=== PATIENT | female | born 1970 | race American Indian/Alaskan Native ===

== ENCOUNTER 2021-03-25 22:04 | Emergency (ER) | payer MEDICAID ==
[2021-03-25] MEDS ORDERED: Acetaminophen/HYDROcodone 325-5 MG Tab PO ONE (22:05)
--- NOTE | 2021-03-25 22:11 | EDM.PDOC ---
ED HPI GENERAL MEDICAL PROBLEM - General Stated Complaint: CHEST PAIN Time Seen by Provider: 03/25/21 22:10 Source of Information: Reports: Patient History Limitations: Reports: No Limitations - History of Present Illness INITIAL COMMENTS - FREE TEXT/NARRATIVE: 50-year-old female who reports that she awoke this a.m. with pain in her right upper chest. It was mild the time but it has seemed to get worse over time. She reports it is a sharp pain and a pressure type pain that is worse when she takes a deep breath and also when she moves her neck or chest. There has been no nausea or vomiting. No cough. No hemoptysis. There has been no known injury. She reports the pain as a 7/10. She also reports the pain seems to feel a lot like when she had a right-sided pneumothorax in the past. She reports that the only relief that she has had of the pain is when she gets in a position where she is not moving and when she is only taking shallow breaths. She has taken Advil for the pain with minimal relief. She presents to the emergency department via private vehicle with a relative. There are no other associated signs or symptoms. There are no other modifying factors. 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) - Related Data Allergies Allergy/AdvReac Type Severity Reaction Status Date / Time morphine AdvReac Nausea and Verified 03/26/21 00:12 Vomiting Home Meds: Home Meds .Amphetamine Salts Er Cap 30 mg PO DAILY 08/27/18 [History] .Amphetamine Salts Tab 30 mg PO ASDIRECTED 08/27/18 [History] Cariprazine Hydrochloride [Vraylar] 6 mg PO DAILY 08/27/18 [History] DULoxetine [Cymbalta] 120 mg PO DAILY 08/27/18 [History] Gabapentin [Neurontin] 600 mg PO TID 08/27/18 [History] Omeprazole 20 mg PO DAILY 08/27/18 [History] rOPINIRole [Requip] 2 mg PO BEDTIME 08/27/18 [History] Acetaminophen/HYDROcodone [[place] 325-5 MG] 1 tab PO Q4H PRN #20 tablet 09/03/18 [Rx] Celecoxib [CeleBREX] 200 mg PO BID #10 cap 09/03/18 [Rx] Docusate Sodium [Colace] 100 mg PO BID #20 capsule 09/03/18 [Rx] Hydrocodone/Acetaminophen [Hydrocodon-Acetaminophen 5-325] 1 - 2 each PO Q6H PRN #8 tablet 03/26/21 [Rx] Past Medical History Respiratory History: Reports: Pneumothorax (Right-sided spontaneous pneumothorax in the past.) Gastrointestinal History: Reports: GERD Musculoskeletal History: Reports: RA Psychiatric History: Reports: Bipolar, Depression Other Psychiatric History: Takes psych medications. Immunologic History: Reports: Immunosuppression (On methotrexate) - Past Surgical History Respiratory Surgical History: Reports: Other (See Below) (Right-sided chest tube placed) Female Surgical History: Reports: Section, Endometrial Ablation, Other (See Below) Other Female Surgeries/Procedures: Breast augmentation. Musculoskeletal Surgical History: Reports: Other (See Below) Other Musculoskeletal Surgeries/Procedures:: Bunionectomy, left and right. Social & Family History - Tobacco Use Tobacco Use Status *Q: Current Every Day Tobacco User - Caffeine Use Caffeine Use: Reports: Coffee - Alcohol Use Alcohol Use History: No - Living Situation & Occupation Occupation: Employed (Works at a [employer]) ED ROS GENERAL - Review of Systems Review Of Systems: See Below Constitutional: Denies: Fever, Chills HEENT: Reports: Other (No trouble swallowing). Denies: Throat Pain Respiratory: Reports: Pleuritic Chest Pain. Denies: Shortness of Breath, Cough Cardiovascular: Reports: Chest Pain. Denies: Palpitations GI/Abdominal: Denies: Nausea, Vomiting : Denies: Dysuria, Hematuria Musculoskeletal: Reports: Neck Pain, Shoulder Pain Skin: Denies: Diaphoresis, Rash Neurological: Denies: Confusion, Dizziness Hematologic/Lymphatic: Denies: Easy Bleeding, Easy Bruising ED EXAM, GENERAL - Physical Exam Exam: See Below Exam Limited By: No Limitations General Appearance: Alert, WD/WN, Moderate Distress (Appears in pain but in no respiratory distress.) Eye Exam: Bilateral Eye: EOMI, Normal Inspection, PERRL Ears: Normal External Exam, Hearing Grossly Normal Ear Exam: Bilateral Ear: Auricle Normal Nose: Normal Inspection, Normal Mucosa, No Blood Throat/Mouth: Normal Inspection, Normal Lips, Normal Oropharynx, Normal Voice, No Airway Compromise Head: Atraumatic, Normocephalic Neck: Normal Inspection, Supple, Non-Tender, Full Range of Motion, Other (No crepitus. No subcutaneous emphysema.) Respiratory/Chest: No Respiratory Distress, Normal Breath Sounds, No Accessory Muscle Use, Chest Non-Tender, Crackles (Few crackles on the right) Cardiovascular: Normal Peripheral Pulses, Regular Rate, Rhythm, No Edema, No Murmur, No Rub Peripheral Pulses: 2+: Radial (L), Radial (R) GI/Abdominal: Normal Bowel Sounds, Soft, Non-Tender, No Mass Back Exam: Normal Inspection, Full Range of Motion. No: CVA Tenderness (R), CVA Tenderness (L) Extremities: Normal Inspection, Normal Range of Motion, Non-Tender, No Pedal Edema, Normal Capillary Refill Neurological: Alert, Oriented, CN II-XII Intact, Normal Cognition, No Motor/Sensory Deficits Psychiatric: Normal Affect Skin Exam: Warm, Dry, Intact, Normal Color, No Rash #1 Interpretation EKG Date: 03/25/21 Time: 22:07 Rhythm: NSR Rate (Beats/Min): 80 [place]: Normal P-Wave: Enlarged QRS: Normal ST-T: Other (Nonspecific ST-T abnormality) QT: Normal Comparison: NA - No Prior EKG Course - Vital Signs Last Recorded V/S: Last Vital Signs Temp 36.8 C 03/25/21 22:05 Pulse Resp BP Pulse Ox - Orders/Labs/Meds Orders: Active Orders 24 hr Category Date Time Status EKG Documentation Completion [RC] ASDIRECTED Care 03/25/21 23:03 Active Ang Chest [CT] Stat Exams 03/26/21 00:12 Taken Chest 1V Frontal [CR] Stat Exams 03/25/21 22:26 Taken Sodium Chloride 0.9% [Normal Saline] 1,000 ml Med 03/25/21 23:15 Active IV ASDIRECTED Sodium Chloride 0.9% [Saline Flush] Med 03/25/21 23:01 Active 10 ml FLUSH ASDIRECTED PRN Peripheral IV Insertion Adult [OM.PC] Routine Oth 03/25/21 23:01 Ordered EKG 12 Lead [EK] Routine Ther 03/25/21 23:01 Ordered Medication Orders Sodium Chloride (Normal Saline) 1,000 mls @ 150 mls/hr IV ASDIRECTED CODY Last Admin: 03/25/21 23:28 Dose: 150 mls/hr Documented by: BARRERA Sodium Chloride (Sodium Chloride 0.9% 10 Ml Syringe) 10 ml FLUSH ASDIRECTED PRN PRN Reason: Keep Vein Open Labs: Laboratory Tests 03/25/21 03/25/21 03/25/21 Range/Units 22:25 22:25 22:25 WBC 11.4 H (3.0-10.3) x10-3/uL RBC 4.88 (3.60-5.20) x10(6)uL Hgb 15.8 H (11.4-15.5) g/dL Hct 46.7 (34.2-48.2) % MCV 95.9 (76.7-100.5) fL MCH 32.3 (23.9-33.9) pg MCHC 33.7 (31.9-34.8) g/dL RDW 12.8 (12.3-16.5) % Plt Count 284 (151-488) x10(3)uL MPV 7.8 (7.1-12.4) fL Neut % (Auto) 61.0 (30.8-76.2) % Lymph % (Auto) 27.8 (18.4-52.1) % [place] % (Auto) 6.9 (4.4-15.7) % Eos % (Auto) 3.0 (0.6-8.1) % Baso % (Auto) 1.3 (0.2-1.5) % Neut # (Auto) 7.0 H (1.5-6.3) x10-3/uL Lymph # (Auto) 3.2 (1.0-4.4) x10-3/uL [place] # (Auto) 0.8 (0.3-1.0) x10-3/uL Eos # (Auto) 0.3 (0.0-0.8) x10-3/uL Baso # (Auto) 0.2 H (0.0-0.1) x10-3/uL D-Dimer, Quantitative 0.28 (0.0-0.59) mg/LFEU Sodium 145 (135-145) mmol/L Potassium 3.6 (3.5-5.3) mmol/L Chloride 106 (100-110) mmol/L Carbon Dioxide 29 (21-32) mmol/L BUN 18 D (7-18) mg/dL Creatinine 0.8 (0.55-1.02) mg/dL Est Cr Clr Drug Dosing TNP Estimated GFR (MDRD) > 60 (>60) BUN/Creatinine Ratio 22.5 H (9-20) Glucose 110 (80-116) mg/dL Calcium 8.5 L (8.6-10.2) mg/dL Magnesium 1.8 (1.8-2.5) mg/dL Total Bilirubin 0.1 (0.1-1.3) mg/dL AST 18 D (5-25) IU/L ALT 23 D (12-36) U/L Alkaline Phosphatase 172 H (56-112) IU/L Troponin I (4.0-60.3) pg/mL C-Reactive Protein (0.5-0.9) mg/dL Total Protein 7.1 (6.0-8.0) g/dL Albumin 3.2 L (3.5-5.2) g/dL Globulin 3.9 g/dL Albumin/Globulin Ratio 0.8 // Range/Units 22:25 WBC (3.0-10.3) x10-3/uL RBC (3.60-5.20) x10(6)uL Hgb (11.4-15.5) g/dL Hct (34.2-48.2) % MCV (76.7-100.5) fL MCH (23.9-33.9) pg MCHC (31.9-34.8) g/dL RDW (12.3-16.5) % Plt Count (151-488) x10(3)uL MPV (7.1-12.4) fL Neut % (Auto) (30.8-76.2) % Lymph % (Auto) (18.4-52.1) % [place] % (Auto) (4.4-15.7) % Eos % (Auto) (0.6-8.1) % Baso % (Auto) (0.2-1.5) % Neut # (Auto) (1.5-6.3) x10-3/uL Lymph # (Auto) (1.0-4.4) x10-3/uL [place] # (Auto) (0.3-1.0) x10-3/uL Eos # (Auto) (0.0-0.8) x10-3/uL Baso # (Auto) (0.0-0.1) x10-3/uL D-Dimer, Quantitative (0.0-0.59) mg/LFEU Sodium (135-145) mmol/L Potassium (3.5-5.3) mmol/L Chloride (100-110) mmol/L Carbon Dioxide (21-32) mmol/L BUN (7-18) mg/dL Creatinine (0.55-1.02) mg/dL Est Cr Clr Drug Dosing Estimated GFR (MDRD) (>60) BUN/Creatinine Ratio (9-20) Glucose (80-116) mg/dL Calcium (8.6-10.2) mg/dL Magnesium (1.8-2.5) mg/dL Total Bilirubin (0.1-1.3) mg/dL AST (5-25) IU/L ALT (12-36) U/L Alkaline Phosphatase (56-112) IU/L Troponin I 4.0 (4.0-60.3) pg/mL C-Reactive Protein 1.0 H (0.5-0.9) mg/dL Total Protein (6.0-8.0) g/dL Albumin (3.5-5.2) g/dL Globulin g/dL Albumin/Globulin Ratio Meds: Medications Generic Name Dose Route Start Last Admin Trade Name Freq PRN Reason Stop Dose Admin Sodium Chloride 1,000 mls @ 150 mls/hr 03/25/21 23:15 03/25/21 23:28 Normal Saline IV 150 mls/hr ASDIRECTED CODY Administration Sodium Chloride 10 ml 03/25/21 23:01 Sodium Chloride 0.9% 10 Ml Syringe FLUSH ASDIRECTED PRN Keep Vein Open Discontinued Medications Generic Name Dose Route Start Last Admin Trade Name Freq PRN Reason Stop Dose Admin Fentanyl 50 mcg 03/25/21 23:04 03/25/21 23:37 Fentanyl 100 Mcg/2 Ml Sdv IVPUSH 03/25/21 23:05 50 mcg ONETIME ONE Administration Iopamidol 100 ml 03/26/21 00:18 03/26/21 00:29 Iopamidol 755 Mg/Ml 100 Ml Bottle IV 03/26/21 00:19 100 ml . DIRECTED ONE Administration Ketorolac Tromethamine 30 mg 03/26/21 00:12 03/26/21 01:20 Ketorolac 30 Mg/Ml Sdv IVPUSH 03/26/21 00:13 30 mg ONETIME ONE Administration Ondansetron HCl 4 mg 03/25/21 23:04 03/25/21 23:31 Ondansetron 4 Mg/2 Ml Sdv IVPUSH 03/25/21 23:05 4 mg ONETIME ONE Administration - Radiology Interpretation Free Text/Narrative:: Portable Chest x-ray showed no acute abnormality and specifically there was no pneumo or hemothorax per my read. CTA of the chest showed an unremarkable CT appearance of the chest with subcentimeter nodules within the right lung. These nodules should be followed up with repeat CT by her primary provider in the next 3-6 months. The upper abdomen also looks unremarkable. This was per the [facility] radiologist. - Re-Assessments/Exams Free Text/Narrative Re-Assessment/Exam: 03/25/21 23:15: Patient's portable chest x-ray showed no evidence of pneumothorax. She was given fentanyl 50 g IV and Zofran 4 mg IV and this has decreased her pain. She still has pain with inspiration she is able to rest somewhat more comfortable. Her troponin was normal. Her d-dimer was normal as well. She is still, however, having quite a bit of pain. And there is definitely a strong pleuritic component. I discussed this with the patient and we will proceed with CTA of the chest to rule out serious pathology. In addition, I will give the patient Toradol 30 mg IV. She has had this in the past and has had no problems with it. The patient is remaining hemodynamically and respiratory stable at this point. 03/26/21 01:15: CTA of the chest showed no acute abnormality. There were some subcentimeter nodules in the right lung that will need follow-up with the primary provider in 3-6 months but nothing that would explain the patient's right chest and upper back pain. She was sleeping when I came into the room and appeared to be resting comfortably. Her blood pressure, pulse and O2 saturations are normal. When awakened she reports she still has pain in the right upper chest and shoulder and upper back and it is still worse with deep breath. I am unsure of the cause of her chest pain but it is pleuritic in nature and is possibly pleurisy. She did not receive Toradol earlier and will be getting that now. I have advised the patient to take ibuprofen 600 mg by mouth 4 times a day for the next 3 to 4 days and then as needed. I will also give her a take home pack of hydrocodone 5/325 and a prescription for an additional 8 tablets that she can use for moderate to severe pain. If her symptoms are persisting for more than a few more days and failing to improve, she should follow-up with her primary provider. Precautions and reasons for return to the emergency department were discussed with the patient while she was in the emergency department and were detailed in the patient's discharge instructions. Departure - Departure Time of Disposition: 01:30 Disposition: Home, Self-Care 01 Condition: Good (Stable) Clinical Impression: Right-sided chest pain, Pleurisy Prescriptions: Hydrocodone/Acetaminophen [Hydrocodon-Acetaminophen 5-325] 1 - 2 each PO Q6H PRN #8 tablet PRN Reason: Moderate to severe pain Instructions: Nonspecific Chest Pain, Adult, [id number], Pleurisy, [id number] Referrals: Hari Montague MD [Physician] - Forms: ED Department Discharge Additional Instructions: All of your blood tests were reassuringly normal. Your chest x-ray showed no evidence of lung collapse or pneumonia. Your EKG showed no evidence of a heart attack. The CT scan of your chest showed no acute abnormality and specifically no evidence of blood clots, lung collapse, pneumonia or any other acute finding in the chest. He did have several small nodules in your right lung and you will need to follow-up with your primary provider for reevaluation of these nodules in 3-6 months by CAT scan. You should take ibuprofen 600 mg by mouth 4 times a day for the next 3-4 days and then as needed. Medication as prescribed for more severe pain (hydrocodone 5/325). You should increase your fluid intake. Back to the emergency department for coughing up blood, breathing, high fever, unrelenting vomiting, severe weakness or any other concerning signs or symptoms. Sepsis Event Note (ED) - Focused Exam Vital Signs: Vital Signs Temp 03/25/21 22:05 36.8 C - My Orders Last 24 Hours: My Active Orders 03/25/21 22:26 Chest 1V Frontal [CR] Stat 03/25/21 23:01 Sodium Chloride 0.9% [Saline Flush] 10 ml FLUSH ASDIRECTED PRN Peripheral IV Insertion Adult [OM.PC] Routine EKG 12 Lead [EK] Routine 03/25/21 23:03 EKG Documentation Completion [RC] ASDIRECTED 03/25/21 23:15 Sodium Chloride 0.9% [Normal Saline] 1,000 ml IV ASDIRECTED 03/26/21 00:12 Ang Chest [CT] Stat - Assessment/Plan Last 24 Hours: My Active Orders 03/25/21 22:26 Chest 1V Frontal [CR] Stat 03/25/21 23:01 Sodium Chloride 0.9% [Saline Flush] 10 ml FLUSH ASDIRECTED PRN Peripheral IV Insertion Adult [OM.PC] Routine EKG 12 Lead [EK] Routine 03/25/21 23:03 EKG Documentation Completion [RC] ASDIRECTED 03/25/21 23:15 Sodium Chloride 0.9% [Normal Saline] 1,000 ml IV ASDIRECTED 03/26/21 00:12 Ang Chest [CT] Stat
[2021-03-25] MEDS ORDERED: Sodium Chloride 0.9% 10 ML Syringe FLUSH PRN (23:01)
[2021-03-25] MEDS ORDERED: Ondansetron 4 MG/2 ML SDV IVPUSH ONE (23:04)
[2021-03-25] MEDS ORDERED: fentaNYL 100 MCG/2 ML SDV IVPUSH ONE (23:04)
[2021-03-25] MEDS ORDERED: Sodium Chloride 0.9% 1,000 ML IV SCH (23:15)
[2021-03-26] MEDS ORDERED: Ketorolac 30 MG/ML SDV IVPUSH ONE (00:12)
[2021-03-26] MEDS ORDERED: Iopamidol 755 Mg/ML 100 ML Bottle IV ONE (00:18)
--- NOTE | 2021-03-26 10:38 | CR ---
INDICATION: Chest pain. CHEST ONE VIEW: AP upright portable view of the chest was obtained 03/25/21 and compared with 07/17/20 and 02/22/20 clinic films from [place]. The heart remains normal in size and shape. There may be some minimal calcification in the arch of the aorta. Overlying EKG leads are noted. Pulmonary markings are similar to the previous study without a definite active infiltrate or effusion. IMPRESSION: 1. No acute process. 2. 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 MTDD
== END 2021-03-26 02:05 | disposition home or self-care (01) ==
LOC: FB.ED 22:04
DX: R09.1 Pleurisy (principal); K21.9 Gastro-esophageal reflux disease without esophagitis; Z79.899 Other long term (current) drug therapy; Z72.0 Tobacco use
CPT/HCPCS: 36415; 71045; 71275; 80053; 83735; 84484; 85025; 85379; 86140; 93005; 93010; 96374; 96375; 99284; 99284-25; A9270-GY; J1885; J2405; J3010; J7030; Q9967

== ENCOUNTER 2021-06-15 18:06 | Emergency (ER) | payer MEDICAID ==
[2021-06-15] MEDS ORDERED: Ondansetron 4 MG Tab.DIS PO ONE (18:07)
[2021-06-15] MEDS: Ondansetron 4 MG/2 ML SDV IVPUSH ONE (19:33)
[2021-06-15] MEDS: Lactated Ringers 1,000 ML IV ONE (19:33)
--- NOTE | 2021-06-15 19:33 | EDM.PDOC ---
ED HPI GENERAL MEDICAL PROBLEM - General Stated Complaint: abd pain Time Seen by Provider: 06/15/21 19:05 Source of Information: Reports: Patient History Limitations: Reports: No Limitations - History of Present Illness INITIAL COMMENTS - FREE TEXT/NARRATIVE: Patient came to the emergency department for evaluation of a 1 week history of diarrhea. She denies any travel, new foods, or sick contacts. She was seen by her primary care physician yesterday after she began to have some bloody diarrhea. She was advised by her primary care physician to take Imodium and drink electrolyte fluids such as Pedialyte. She did not take Imodium and she could not drink any fluids today because of nauseousness and vomiting. Denies fever, chills, dysuria. She states that she does have a cough but she has chron ic emphysema and continues to smoke cigarettes. - Related Data Allergies Allergy/AdvReac Type Severity Reaction Status Date / Time morphine AdvReac Nausea and Verified 03/26/21 00:12 Vomiting Home Meds: Home Meds .Amphetamine Salts Er Cap 30 mg PO DAILY 08/27/18 [History] .Amphetamine Salts Tab 30 mg PO DAILY 08/27/18 [History] Cariprazine Hydrochloride [Vraylar] 6 mg PO DAILY 08/27/18 [History] DULoxetine [Cymbalta] 120 mg PO DAILY 08/27/18 [History] Gabapentin [Neurontin] 600 mg PO TID 08/27/18 [History] Omeprazole 20 mg PO DAILY PRN 08/27/18 [History] Celecoxib [CeleBREX] 200 mg PO BID #10 cap 09/03/18 [Rx] Hydrocodone/Acetaminophen [HYDROcodone-Acetaminophen 5-325 MG] 1 - 2 each PO Q6H PRN #8 tablet 03/26/21 [Rx] Potassium Chloride [Klor-Con M10] 20 meq PO BID #12 tab.er.prt 06/15/21 [Rx] Past Medical History Respiratory History: Reports: Pneumothorax (Right-sided spontaneous pneumothorax in the past.) 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) ED ROS GENERAL - Review of Systems Review Of Systems: See Below Constitutional: Reports: Malaise HEENT: Reports: No Symptoms Respiratory: Reports: Cough, Other (Chronic cough secondary to chronic emphysema) Cardiovascular: Reports: No Symptoms Endocrine: Reports: No Symptoms GI/Abdominal: Reports: Abdominal Pain, Anorexia, Diarrhea, Nausea, Vomiting : Reports: No Symptoms Musculoskeletal: Reports: No Symptoms Skin: Reports: No Symptoms Neurological: Reports: No Symptoms Psychiatric: Reports: No Symptoms Hematologic/Lymphatic: Reports: No Symptoms Immunologic: Reports: No Symptoms ED EXAM, GI/ABD - Physical Exam Exam: See Below Exam Limited By: No Limitations General Appearance: Mild Distress Eyes: Bilateral: EOMI Throat/Mouth: Normal Inspection Head: Atraumatic, Normocephalic Neck: Normal Inspection Respiratory/Chest: No Respiratory Distress Cardiovascular: Normal Peripheral Pulses, Regular Rate, Rhythm GI/Abdominal Exam: Tender. No: Guarding, Rebound Back Exam: Normal Inspection. No: CVA Tenderness (R), CVA Tenderness (L) Extremities: Normal Inspection Neurological: Alert, Oriented, CN II-XII Intact, Normal Cognition, Normal Gait, Normal Reflexes, No Motor/Sensory Deficits Psychiatric: Normal Affect, Normal Mood Skin Exam: Warm, Dry Course - Vital Signs Text/Narrative:: Review of labs performed yesterday and today shows improvement in potassium from 2.6-3.0. Patient was given 1 L of lactated Ringer's and 40 mg potassium chloride oral. Patient was likely mildly dehydrated and low on potassium secondary to diarrhea. Patient was given 4 mg loperamide. - Orders/Labs/Meds Orders: Active Orders 24 hr Category Date Time Status Orthostatic Vital Signs [RC] ASDIRECTED Care 06/15/21 18:42 Active CBC WITH AUTO DIFF [HEME] Stat Lab 06/15/21 19:25 Ordered COMPREHENSIVE METABOLIC PN,CMP [CHEM] Stat Lab 06/15/21 19:25 Ordered Lactated Ringers [Ringers, Lactated] 1,000 ml Med 06/15/21 19:18 Active IV BOLUS Medication Orders Lactated Ringer's (Ringers, Lactated) 1,000 mls @ 999 mls/hr IV BOLUS ONE Stop: 06/15/21 20:18 Meds: Medications Generic Name Dose Route Start Last Admin Trade Name Freq PRN Reason Stop Dose Admin Lactated Ringer's 1,000 mls @ 999 mls/hr 06/15/21 19:18 Ringers, Lactated IV 06/15/21 20:18 BOLUS ONE Discontinued Medications Generic Name Dose Route Start Last Admin Trade Name Freq PRN Reason Stop Dose Admin Ondansetron HCl 4 mg 06/15/21 19:18 Ondansetron 4 Mg/2 Ml Sdv IVPUSH 06/15/21 19:19 ONETIME ONE Departure - Departure Time of Disposition: 21:08 Disposition: Home, Self-Care 01 Condition: Good Clinical Impression: Vomiting, Hypokalemia, Dehydration, mild - Discharge Information *PRESCRIPTION DRUG MONITORING PROGRAM REVIEWED*: Not Applicable *COPY OF PRESCRIPTION DRUG MONITORING REPORT IN PATIENT ADAM: Not Applicable Instructions: Hypokalemia, Dehydration, Adult, [id number], Nausea and Vomiting, Adult, Viral Gastroenteritis, Adult, [id number] Referrals: Oneyda Pal PA-C [Primary Care Provider] - Additional Instructions: OdiumPatient encouraged to use Zofran as needed, as directed, drink fluids as able, take 20 mg of potassium chloride twice a day, and follow-up with her primary care physician this week. Patient encouraged to follow a bland diet. - My Orders Last 24 Hours: My Active Orders 06/15/21 19:18 Lactated Ringers [Ringers, Lactated] 1,000 ml IV BOLUS 06/15/21 19:25 CBC WITH AUTO DIFF [HEME] Stat COMPREHENSIVE METABOLIC PN,CMP [CHEM] Stat - Assessment/Plan Last 24 Hours: My Active Orders 06/15/21 19:18 Lactated Ringers [Ringers, Lactated] 1,000 ml IV BOLUS 06/15/21 19:25 CBC WITH AUTO DIFF [HEME] Stat COMPREHENSIVE METABOLIC PN,CMP [CHEM] Stat
[2021-06-15] MEDS: Potassium Chloride 20 MEQ Tab.ER PO ONE (20:13)
[2021-06-15] MEDS: Loperamide 2 MG Cap PO ONE (20:13)
[2021-06-15] MEDS: Loperamide 1 MG/7.5 ML 7.5 ML UD Cup PO ONE (20:16)
[2021-06-15] MEDS: Loperamide 2 MG Cap ONE (20:17)
== END 2021-06-15 21:20 | disposition home or self-care (01) ==
LOC: FB.ED 18:06
DX: E86.0 Dehydration (principal); E87.6 Hypokalemia; R11.10 Vomiting, unspecified; K21.9 Gastro-esophageal reflux disease without esophagitis; M06.9 Rheumatoid arthritis, unspecified; Z88.5 Allergy status to narcotic agent; Z79.899 Other long term (current) drug therapy
CPT/HCPCS: 36415; 80053; 83735; 85025; 96374; 99284; A9270; J2405; J7120

== ENCOUNTER 2022-08-05 18:49 | Emergency (ER) | payer MEDICAID ==
[2022-08-05] MEDS ORDERED: Ondansetron 4 MG/2 ML SDV IVPUSH ONE (19:17)
[2022-08-05] MEDS ORDERED: Sodium Chloride 0.9% 1,000 ML IV ONE (19:17)
[2022-08-05] MEDS ORDERED: Sodium Chloride 0.9% 1,000 ML IV SCH (19:30)
[2022-08-05 19:38] LABS: ESTIMATED GFR 36 mL/min (>60)
[2022-08-05] MEDS ORDERED: Potassium Chloride 20 MEQ Tab.ER PO ONE (19:49)
[2022-08-05 20:09] LABS: CORONAVIRUS COVID-19 NAA NEGATIVE (NEGATIVE)
== END 2022-08-05 21:03 | disposition home or self-care (01) ==
LOC: FB.ED 18:49
DX: E86.0 Dehydration (principal); R11.2 Nausea with vomiting, unspecified; Z88.6 Allergy status to analgesic agent; Z79.899 Other long term (current) drug therapy; Z20.822 Contact with and (suspected) exposure to COVID-19
CPT/HCPCS: 0241U; 36415; 71045; 80053; 81001; 83036; 83605; 84484; 85025; 86140; 96361; 96374; 99283-25; A9270-GY; J2405; J7030

== ENCOUNTER 2023-06-22 18:35 | Emergency (ER) | payer SELFPAY ==
[2023-06-22 20:06] LABS: INFLUENZA A NAA NEGATIVE (NEGATIVE); INFLUENZA B NAA NEGATIVE (NEGATIVE); RESPIRATORY SYNCYTIAL VIR NAA NEGATIVE (NEGATIVE)
[2023-06-22 20:08] LABS: CORONAVIRUS COVID-19 NAA NEGATIVE (NEGATIVE)
[2023-06-22] MEDS ORDERED: Azithromycin 500 MG Tab PO ONE (20:19)
== END 2023-06-22 20:30 | disposition home or self-care (01) ==
LOC: FB.ED 18:35
DX: J01.90 Acute sinusitis, unspecified (principal); D84.9 Immunodeficiency, unspecified; J44.9 Chronic obstructive pulmonary disease, unspecified; I10 Essential (primary) hypertension; K21.9 Gastro-esophageal reflux disease without esophagitis; F17.200 Nicotine dependence, unspecified, uncomplicated; Z20.822 Contact with and (suspected) exposure to COVID-19; Z88.5 Allergy status to narcotic agent; Z79.899 Other long term (current) drug therapy
CPT/HCPCS: 0241U; 99284; A9270

== ENCOUNTER 2023-10-06 17:12 | Emergency (ER) | payer SELFPAY ==
[2023-10-06] MEDS ORDERED: Sodium Chloride 0.9% 10 ML Syringe FLUSH PRN (17:34)
[2023-10-06] MEDS ORDERED: Labetalol 20 MG/4 ML Syringe IVPUSH ONE (17:38)
[2023-10-06 17:54] LABS: BASOPHILS ABSOLUTE AUTO 0.4 x10-3/uL (0.0-0.1); BASOPHILS PERCENT AUTO 3.5 % (0.2-1.5); EOSINOPHILS ABSOLUTE AUTO 0.3 x10-3/uL (0.0-0.8); EOSINOPHILS PERCENT AUTO 3.1 % (0.6-8.1); HEMATOCRIT 42.6 % (34.2-48.2); HEMOGLOBIN 14.6 g/dL (11.4-15.5); LYMPHOCYTES ABSOLUTE AUTO 2.8 x10-3/uL (1.0-4.4); LYMPHOCYTES PERCENT AUTO 26.7 % (18.4-52.1); MEAN CORPUSCULAR HEMOGLOBIN 31.2 pg (23.9-33.9); MEAN CORPUSCULAR HGB CONC 34.3 g/dL (31.9-34.8); MEAN PLATELET VOLUME 8.8 fL (7.1-12.4); MONOCYTES ABSOLUTE AUTO 0.7 x10-3/uL (0.3-1.0); MONOCYTES PERCENT AUTO 6.5 % (4.4-15.7); NEUTROPHILS ABSOLUTE AUTO 6.2 x10-3/uL (1.5-6.3); NEUTROPHILS PERCENT AUTO 60.2 % (30.8-76.2); PLATELET COUNT,PLT 308 x10(3)uL (151-488); RED BLOOD CELL COUNT 4.68 x10(6)uL (3.60-5.20); RED CELL DISTRIBUTION WIDTH 12.9 % (12.3-16.5); WHITE BLOOD CELL COUNT,WBC 10.4 x10-3/uL (3.0-10.3)
[2023-10-06 18:08] LABS: A/G RATIO 0.8; ALANINE AMINOTRANSFERASE,ALT 58 U/L (12-36); ALBUMIN 3.5 g/dL (3.5-5.2); ALKALINE PHOSPHATASE 320 IU/L (56-112); ASPARTATE AMNIOTRANSFERASE,AST 53 IU/L (5-25); BILIRUBIN TOTAL 0.3 mg/dL (0.1-1.3); BLOOD UREA NITROGEN,BUN 11 mg/dL (7-18); BUN/CREATININE RATIO 15.7 (9-20); CALCIUM 10.1 mg/dL (8.6-10.2); CARBON DIOXIDE,CO2 32 mmol/L (21-32); CHLORIDE,CL 99 mmol/L (100-110); CREATININE 0.7 mg/dL (0.55-1.02); EST CRCL DRUG DOSING (CG) 85.56 mL/min; ESTIMATED GFR 105 mL/min (>60); GLUCOSE RANDOM 171 mg/dL (80-116); POTASSIUM,K 2.9 mmol/L (3.5-5.3); PROTEIN TOTAL,TP 7.7 g/dL (6.0-8.0); SODIUM,NA 138 mmol/L (135-145)
[2023-10-06 18:09] LABS: TROPONIN I 30.8 pg/mL (4.0-60.3)
[2023-10-06 18:23] LABS: BILIRUBIN,URINE NEGATIVE (NEGATIVE); GLUCOSE,URINE 100 mg/dL (NORMAL); KETONES,URINE NEGATIVE (NEGATIVE); LEUKOCYTE ESTERASE,URINE NEGATIVE (NEGATIVE); NITRITE,URINE NEGATIVE (NEGATIVE); OCCULT BLOOD,URINE NEGATIVE (NEGATIVE); PROTEIN,URINE NEGATIVE (NEGATIVE); UROBILINOGEN,URINE NORMAL (NEGATIVE)
[2023-10-06] MEDS ORDERED: cloNIDine 0.1 MG Tab PO ONE (18:32)
[2023-10-06] MEDS ORDERED: Hydrochlorothiazide 25 MG Tab PO ONE (18:32)
[2023-10-06] MEDS ORDERED: hydrALAZINE 20 MG/ML SDV IVPUSH ONE (18:32)
[2023-10-06] MEDS ORDERED: Potassium Chloride 20 MEQ Tab.ER PO ONE (18:35)
[2023-10-06] MEDS ORDERED: Lisinopril 20 MG Tab ONE (18:39)
[2023-10-06 18:40] LABS: APPEARANCE,URINE CLEAR (CLEAR); COLOR,URINE YELLOW (YELLOW)
[2023-10-06 18:41] LABS: BACTERIA,URINE FEW (NS); RBC,URINE NOT SEEN (0-5); SQUAMOUS EPITHELIAL CELLS,UR FEW (NS,R,O); WBC,URINE 0-5 (0-5)
[2023-10-06] MEDS ORDERED: Lisinopril 20 MG Tab PO STA (18:43)
[2023-10-06] MEDS: Ondansetron 4 MG Tab.DIS PO ONE ×2 (19:14→19:21)
[2023-10-06] MEDS ORDERED: Aluminum Hydroxide/Magnesium Hydroxide Susp 30 ML Cup PO ONE (19:23)
== END 2023-10-06 19:54 | disposition home or self-care (01) ==
LOC: FB.ED 17:12
DX: I16.9 Hypertensive crisis, unspecified (principal); I10 Essential (primary) hypertension; E87.6 Hypokalemia; K21.9 Gastro-esophageal reflux disease without esophagitis; J44.9 Chronic obstructive pulmonary disease, unspecified; F17.210 Nicotine dependence, cigarettes, uncomplicated; Z86.16 Personal history of COVID-19; Z79.899 Other long term (current) drug therapy; Z88.5 Allergy status to narcotic agent
CPT/HCPCS: 36415; 70450; 71045; 80053; 81001; 83880; 84484; 85025; 93005; 96374; 96375; 99284; A9270; J0360; J1920; J3490; 93010; Q0162

== ENCOUNTER 2023-10-27 15:53 | Emergency (ER) | payer SELFPAY ==
[2023-10-27] MEDS ORDERED: traMADol 50 MG Tab PO ONE (15:54)
[2023-10-27] MEDS ORDERED: Ketorolac 30 MG/ML SDV IM STA (16:09)
[2023-10-27] MEDS ORDERED: hydrOXYzine HCl 50 MG/ML SDV IM ONE (16:10)
== END 2023-10-27 17:40 | disposition home or self-care (01) ==
LOC: FB.ED 15:53
DX: R51.9 Headache, unspecified (principal); F31.9 Bipolar disorder, unspecified; I10 Essential (primary) hypertension; E11.9 Type 2 diabetes mellitus without complications; K21.9 Gastro-esophageal reflux disease without esophagitis; F17.210 Nicotine dependence, cigarettes, uncomplicated; Z88.5 Allergy status to narcotic agent; Z79.899 Other long term (current) drug therapy; Z86.16 Personal history of COVID-19
CPT/HCPCS: 96372; 99283; A9270; J1885; J3410

== ENCOUNTER 2023-12-22 19:05 | Emergency (ER) | payer BC ==
[2023-12-22] MEDS ORDERED: Sodium Chloride 0.9% 10 ML Syringe FLUSH PRN (19:19)
[2023-12-22] MEDS ORDERED: 50% Dextrose in Water 50 ML Syringe IVPUSH PRN (19:23)
[2023-12-22] MEDS ORDERED: Glucagon,Human Recombinant 1 MG Vial IM PRN (19:23)
[2023-12-22 19:37] LABS: HEMATOCRIT 40.6 % (34.2-48.2); MEAN CORPUSCULAR HEMOGLOBIN 29.7 pg (23.9-33.9); MEAN CORPUSCULAR HGB CONC 34.4 g/dL (31.9-34.8); MEAN CORPUSCULAR VOLUME 86.4 fL (76.7-100.5); MEAN PLATELET VOLUME 8.6 fL (7.1-12.4); PLATELET COUNT,PLT 312 x10(3)uL (151-488); RED CELL DISTRIBUTION WIDTH 13.4 % (12.3-16.5); WHITE BLOOD CELL COUNT,WBC 18.8 x10-3/uL (3.0-10.3)
[2023-12-22] MEDS: Sodium Chloride 0.9% 1,000 ML IV SCH (19:45)
[2023-12-22 19:46] LABS: A/G RATIO 0.8; ALANINE AMINOTRANSFERASE,ALT 37 U/L (12-36); ALBUMIN 3.5 g/dL (3.5-5.2); ALKALINE PHOSPHATASE 266 IU/L (56-112); ASPARTATE AMNIOTRANSFERASE,AST 59 IU/L (5-25); BILIRUBIN TOTAL 0.5 mg/dL (0.1-1.3); BLOOD UREA NITROGEN,BUN 16 mg/dL (7-18); CALCIUM 9.6 mg/dL (8.6-10.2); CARBON DIOXIDE,CO2 31 mmol/L (21-32); EST CRCL DRUG DOSING (CG) 24.99 mL/min; ESTIMATED GFR 25 mL/min (>60); GLUCOSE RANDOM 308 mg/dL (80-116); PROTEIN TOTAL,TP 8.1 g/dL (6.0-8.0); SODIUM,NA 129 mmol/L (135-145)
[2023-12-22 19:49] LABS: CHLORIDE,CL 85 mmol/L (100-110); CREATININE 2.3 mg/dL (0.55-1.02); POTASSIUM,K 1.8 mmol/L (3.5-5.3)
[2023-12-22 19:50] LABS: LYMPHOCYTES PERCENT MAN 9 % (13-37); MONOCYTES PERCENT MAN 10 % (4-12); SEG NEUTROPHILS PERCENT MAN 81 % (46-82)
[2023-12-22] MEDS: Insulin Regular, Human 100 Units/ML 3 ML Vial IV ONE (20:11)
[2023-12-22] MEDS: Potassium Chloride 20 MEQ Tab.ER PO ONE (20:19)
[2023-12-22] MEDS: Potassium Chloride 10 MEQ in Premix Bag 1 BAG IV ONE (20:19)
[2023-12-22 20:36] LABS: BASE EXCESS VENOUS,POC 4 mmol/L (-2 - 3+); PCO2 VENOUS,POC 44 mmHg (41-51); PH VENOUS,POC 7.42 pH Units (7.32-7.43)
[2023-12-22] MEDS: Potassium Chloride 10 MEQ in Premix Bag 1 BAG IV SCH (21:21)
[2023-12-22] MEDS: NS + KCl 20mEq/L 1,000 ML IV SCH (21:44)
[2023-12-23 00:02] LABS: A/G RATIO 0.7; ALANINE AMINOTRANSFERASE,ALT 32 U/L (12-36); ALBUMIN 2.9 g/dL (3.5-5.2); ALKALINE PHOSPHATASE 222 IU/L (56-112); ASPARTATE AMNIOTRANSFERASE,AST 50 IU/L (5-25); BILIRUBIN TOTAL 0.4 mg/dL (0.1-1.3); BLOOD UREA NITROGEN,BUN 15 mg/dL (7-18); CALCIUM 8.4 mg/dL (8.6-10.2); CARBON DIOXIDE,CO2 32 mmol/L (21-32); CHLORIDE,CL 91 mmol/L (100-110); CREATININE 1.5 mg/dL (0.55-1.02); EST CRCL DRUG DOSING (CG) 38.31 mL/min; ESTIMATED GFR 42 mL/min (>60); GLUCOSE RANDOM 72 mg/dL (80-116); SODIUM,NA 131 mmol/L (135-145)
[2023-12-23 00:05] LABS: POTASSIUM,K 2.5 mmol/L (3.5-5.3)
== END 2023-12-23 00:04 | disposition left against medical advice (07) ==
LOC: FB.ED 19:05
DX: E11.65 Type 2 diabetes mellitus with hyperglycemia (principal); E86.0 Dehydration; E87.6 Hypokalemia; I10 Essential (primary) hypertension; J44.9 Chronic obstructive pulmonary disease, unspecified; K21.9 Gastro-esophageal reflux disease without esophagitis; Z86.16 Personal history of COVID-19; Z88.5 Allergy status to narcotic agent; Z79.899 Other long term (current) drug therapy
CPT/HCPCS: 36415; 70450; 80053; 80307; 82947; 84484; 85025; 86140; 93005; 93010; 96361; 96365; 96366; 99284; 99284-25; A9270-GY; J1815-GY; J3480; J7030

== ENCOUNTER 2024-03-04 16:10 | Emergency (ER) | payer BC | END 2024-03-04 17:00 | disposition left against medical advice (07) | LOC: FB.ED 16:10 | DX: Z53.21 Procedure and treatment not carried out due to patient leaving prior to being seen by health care provider (principal) ==

== ENCOUNTER 2024-03-25 17:34 | Emergency (ER) | payer SELFPAY | END 2024-03-25 19:13 | disposition home or self-care (01) | LOC: FB.ED 17:34 | DX: M54.12 Radiculopathy, cervical region (principal); J44.9 Chronic obstructive pulmonary disease, unspecified; Z88.5 Allergy status to narcotic agent; Z79.899 Other long term (current) drug therapy; Z86.16 Personal history of COVID-19 | CPT/HCPCS: 72125; 99283 ==

== ENCOUNTER 2024-04-05 18:32 | Emergency (ER) | payer SELFPAY ==
[2024-04-05 19:38] LABS: BASOPHILS ABSOLUTE AUTO 0.2 x10-3/uL (0.0-0.1); BASOPHILS PERCENT AUTO 1.5 % (0.2-1.5); EOSINOPHILS ABSOLUTE AUTO 0.3 x10-3/uL (0.0-0.8); HEMATOCRIT 48.5 % (34.2-48.2); LYMPHOCYTES ABSOLUTE AUTO 2.7 x10-3/uL (1.0-4.4); MEAN CORPUSCULAR HEMOGLOBIN 30.1 pg (23.9-33.9); MEAN CORPUSCULAR HGB CONC 33.1 g/dL (31.9-34.8); MEAN CORPUSCULAR VOLUME 90.9 fL (76.7-100.5); MEAN PLATELET VOLUME 8.7 fL (7.1-12.4); MONOCYTES ABSOLUTE AUTO 0.8 x10-3/uL (0.3-1.0); MONOCYTES PERCENT AUTO 6.5 % (4.4-15.7); NEUTROPHILS ABSOLUTE AUTO 8.8 x10-3/uL (1.5-6.3); PLATELET COUNT,PLT 316 x10(3)uL (151-488); RED BLOOD CELL COUNT 5.33 x10(6)uL (3.60-5.20); RED CELL DISTRIBUTION WIDTH 13.8 % (12.3-16.5); WHITE BLOOD CELL COUNT,WBC 12.8 x10-3/uL (3.0-10.3)
[2024-04-05 19:41] LABS: BLOOD UREA NITROGEN,BUN 18 mg/dL (7-18); CALCIUM 9.5 mg/dL (8.6-10.2); CARBON DIOXIDE,CO2 28 mmol/L (21-32); CHLORIDE,CL 103 mmol/L (100-110); CREATININE 0.9 mg/dL (0.55-1.02); EST CRCL DRUG DOSING (CG) 66.54 mL/min; ESTIMATED GFR 77 mL/min (>60); GLUCOSE RANDOM 146 mg/dL (80-116); POTASSIUM,K 3.7 mmol/L (3.5-5.3); SODIUM,NA 141 mmol/L (135-145)
[2024-04-05 19:47] LABS: A/G RATIO 0.9; ALANINE AMINOTRANSFERASE,ALT 41 U/L (12-36); ALBUMIN 3.8 g/dL (3.5-5.2); ALKALINE PHOSPHATASE 328 IU/L (56-112); ASPARTATE AMNIOTRANSFERASE,AST 31 IU/L (5-25); BILIRUBIN TOTAL 0.3 mg/dL (0.1-1.3); PROTEIN TOTAL,TP 8.2 g/dL (6.0-8.0)
[2024-04-05 19:50] LABS: HEMOGLOBIN A1C 8.5 % (<5.7)
== END 2024-04-05 20:40 | disposition home or self-care (01) ==
LOC: FB.ED 18:32
DX: E11.65 Type 2 diabetes mellitus with hyperglycemia (principal); I10 Essential (primary) hypertension; F31.9 Bipolar disorder, unspecified; R74.01 Elevation of levels of liver transaminase levels; J44.9 Chronic obstructive pulmonary disease, unspecified; K21.9 Gastro-esophageal reflux disease without esophagitis; F17.210 Nicotine dependence, cigarettes, uncomplicated; Z86.16 Personal history of COVID-19; Z79.84 Long term (current) use of oral hypoglycemic drugs; Z79.899 Other long term (current) drug therapy; Z88.5 Allergy status to narcotic agent
CPT/HCPCS: 36415; 80053; 82947; 83036; 85025; 99284

== ENCOUNTER 2024-09-15 23:24 | Emergency (ER) | payer SELFPAY ==
[2024-09-16] MEDS: Amoxicillin/Clavulanate K 875-125 MG Tab PO ONE (00:13)
[2024-09-16] MEDS: Diphtheria,Pertussis(Acell),Tetanus Vaccine 0.5 ML Syringe IM ONE (00:13)
== END 2024-09-16 00:54 | disposition home or self-care (01) ==
LOC: FB.ED 23:24
DX: S61.431A Puncture wound without foreign body of right hand, initial encounter (principal); S51.831A Puncture wound without foreign body of right forearm, initial encounter; I10 Essential (primary) hypertension; J44.9 Chronic obstructive pulmonary disease, unspecified; K21.9 Gastro-esophageal reflux disease without esophagitis; F17.210 Nicotine dependence, cigarettes, uncomplicated; Z86.16 Personal history of COVID-19; Z79.84 Long term (current) use of oral hypoglycemic drugs; Z79.899 Other long term (current) drug therapy; Z88.5 Allergy status to narcotic agent; Z23 Encounter for immunization; W54.0XXA Bitten by dog, initial encounter
CPT/HCPCS: 73110-RT; 73130-RT; 90471; 90715; 99283; 99283-25; A9270-GY

== ENCOUNTER 2024-10-11 18:08 | Emergency (ER) | payer SELFPAY | END 2024-10-11 18:39 | disposition home or self-care (01) | LOC: FB.ED 18:08 | DX: S61.551A Open bite of right wrist, initial encounter (principal); I10 Essential (primary) hypertension; J44.9 Chronic obstructive pulmonary disease, unspecified; Z86.16 Personal history of COVID-19; Z88.5 Allergy status to narcotic agent; Z79.84 Long term (current) use of oral hypoglycemic drugs; Z79.899 Other long term (current) drug therapy; W54.0XXA Bitten by dog, initial encounter | CPT/HCPCS: 99283 ==

== ENCOUNTER 2025-02-16 17:55 | Emergency (ER) | payer SELFPAY ==
[2025-02-16] MEDS ORDERED: traMADol 50 MG Tab PO ONE (17:56)
[2025-02-16] MEDS: Ketorolac 30 MG/ML SDV IM ONE (18:30)
[2025-02-16 18:36] LABS: BASOPHILS ABSOLUTE AUTO 0.1 x10-3/uL (0.0-0.1); BASOPHILS PERCENT AUTO 1.1 % (0.2-1.5); EOSINOPHILS ABSOLUTE AUTO 0.5 x10-3/uL (0.0-0.8); HEMOGLOBIN 12.7 g/dL (11.4-15.5); LYMPHOCYTES ABSOLUTE AUTO 3.2 x10-3/uL (1.0-4.4); LYMPHOCYTES PERCENT AUTO 27.4 % (18.4-52.1); MEAN CORPUSCULAR HEMOGLOBIN 31.1 pg (23.9-33.9); MEAN CORPUSCULAR HGB CONC 34.4 g/dL (31.9-34.8); MEAN CORPUSCULAR VOLUME 90.5 fL (76.7-100.5); MONOCYTES ABSOLUTE AUTO 0.7 x10-3/uL (0.3-1.0); MONOCYTES PERCENT AUTO 6.2 % (4.4-15.7); NEUTROPHILS ABSOLUTE AUTO 7.1 x10-3/uL (1.5-6.3); NEUTROPHILS PERCENT AUTO 61.3 % (30.8-76.2); PLATELET COUNT,PLT 349 x10(3)uL (151-488); RED BLOOD CELL COUNT 4.09 x10(6)uL (3.60-5.20); RED CELL DISTRIBUTION WIDTH 14.6 % (12.3-16.5); WHITE BLOOD CELL COUNT,WBC 11.6 x10-3/uL (3.0-10.3)
[2025-02-16 18:40] LABS: BLOOD UREA NITROGEN,BUN 21 mg/dL (7-18); BUN/CREATININE RATIO 19.1 (9-20); CALCIUM 8.6 mg/dL (8.6-10.2); CARBON DIOXIDE,CO2 27 mmol/L (21-32); CHLORIDE,CL 106 mmol/L (100-110); CREATININE 1.1 mg/dL (0.55-1.02); ESTIMATED GFR 60 mL/min (>60); GLUCOSE RANDOM 104 mg/dL (80-116); SODIUM,NA 142 mmol/L (135-145)
[2025-02-16] MEDS: Iopamidol 755 Mg/ML 100 ML Bottle IV SCH (19:15)
== END 2025-02-16 20:22 | disposition home or self-care (01) ==
LOC: FB.ED 17:55
DX: R07.89 Other chest pain (principal); I10 Essential (primary) hypertension; J44.9 Chronic obstructive pulmonary disease, unspecified; K21.9 Gastro-esophageal reflux disease without esophagitis; Z86.16 Personal history of COVID-19; F17.200 Nicotine dependence, unspecified, uncomplicated; Z79.899 Other long term (current) drug therapy; Z79.84 Long term (current) use of oral hypoglycemic drugs; Z88.5 Allergy status to narcotic agent
CPT/HCPCS: 36415; 71275; 80048; 84484; 85025; 85379; 93005; 96372; 99285; A9270; J1885; Q9967

== ENCOUNTER 2025-03-17 10:13 | Emergency (ER) | payer SELFPAY ==
[2025-03-17] MEDS: Sodium Chloride 0.9% 10 ML Syringe FLUSH PRN (10:45)
[2025-03-17 11:19] LABS: HEMATOCRIT 43.9 % (34.2-48.2); HEMOGLOBIN 14.9 g/dL (11.4-15.5); MEAN CORPUSCULAR HGB CONC 33.9 g/dL (31.9-34.8); MEAN CORPUSCULAR VOLUME 88.5 fL (76.7-100.5); PLATELET COUNT,PLT 412 x10(3)uL (151-488); RED BLOOD CELL COUNT 4.97 x10(6)uL (3.60-5.20); RED CELL DISTRIBUTION WIDTH 13.6 % (12.3-16.5); WHITE BLOOD CELL COUNT,WBC 16.3 x10-3/uL (3.0-10.3)
[2025-03-17 11:24] LABS: BLOOD UREA NITROGEN,BUN 26 mg/dL (7-18); BUN/CREATININE RATIO 16.3 (9-20); CALCIUM 9.5 mg/dL (8.6-10.2); CARBON DIOXIDE,CO2 24 mmol/L (21-32); CHLORIDE,CL 96 mmol/L (100-110); CREATININE 1.6 mg/dL (0.55-1.02); EST CRCL DRUG DOSING (CG) 35.52 mL/min; ESTIMATED GFR 39 mL/min (>60); GLUCOSE RANDOM 289 mg/dL (80-116); SODIUM,NA 134 mmol/L (135-145)
[2025-03-17 11:30] LABS: A/G RATIO 0.8; ALANINE AMINOTRANSFERASE,ALT 42 U/L (12-36); ALBUMIN 3.7 g/dL (3.5-5.2); ALKALINE PHOSPHATASE 189 IU/L (56-112); ASPARTATE AMNIOTRANSFERASE,AST 25 IU/L (5-25); BILIRUBIN TOTAL 0.3 mg/dL (0.1-1.3); MAGNESIUM 1.9 mg/dL (1.8-2.5); PROTEIN TOTAL,TP 8.2 g/dL (6.0-8.0)
[2025-03-17 11:41] LABS: EOSINOPHILS PERCENT MAN 2 % (0-5); LYMPHOCYTES PERCENT MAN 15 % (13-37); MONOCYTES PERCENT MAN 7 % (4-12); SEG NEUTROPHILS PERCENT MAN 76 % (46-82)
[2025-03-17] MEDS: Sodium Chloride 0.9% 1,000 ML IV SCH (12:06)
[2025-03-17] MEDS: Nitroglycerin 0.4 MG Tab.SL SL PRN (12:07)
[2025-03-17] MEDS: Potassium Chloride 20 MEQ Tab.ER PO ONE (12:25)
[2025-03-17] MEDS: traMADol 50 MG Tab PO ONE (12:29)
[2025-03-17] MEDS: Ondansetron 4 MG/2 ML SDV IVPUSH ONE (12:29)
[2025-03-17] MEDS: Acetaminophen 500 MG Tab PO ONE (12:39)
[2025-03-17 13:04] LABS: APPEARANCE,URINE CLEAR (CLEAR); BILIRUBIN,URINE SMALL (NEGATIVE); COLOR,URINE YELLOW (YELLOW); GLUCOSE,URINE NORMAL (NORMAL); KETONES,URINE NEGATIVE (NEGATIVE); LEUKOCYTE ESTERASE,URINE NEGATIVE (NEGATIVE); NITRITE,URINE NEGATIVE (NEGATIVE); OCCULT BLOOD,URINE NEGATIVE (NEGATIVE); PROTEIN,URINE 30 mg/dL (NEGATIVE); UROBILINOGEN,URINE 1 mg/dL (NEGATIVE)
[2025-03-17 13:10] LABS: RBC,URINE 0-5 (0-5); SQUAMOUS EPITHELIAL CELLS,UR FEW (NS,R,O); WBC,URINE 0-5 (0-5)
[2025-03-17 13:11] LABS: BACTERIA,URINE FEW (NS); HYALINE CASTS,URINE FEW (NS); MUCUS,URINE MODERATE (NS)
[2025-03-17] MEDS: Sodium Chloride 0.9% 500 ML IV ONE (15:07)
== END 2025-03-17 14:12 | disposition left against medical advice (07) ==
LOC: FB.ED 10:13
DX: I20.0 Unstable angina (principal); I10 Essential (primary) hypertension; E87.6 Hypokalemia; E11.65 Type 2 diabetes mellitus with hyperglycemia; J44.9 Chronic obstructive pulmonary disease, unspecified; Z86.16 Personal history of COVID-19; Z79.84 Long term (current) use of oral hypoglycemic drugs; Z79.899 Other long term (current) drug therapy; Z88.8 Allergy status to other drugs, medicaments and biological substances
CPT/HCPCS: 36415; 80053; 81001; 83735; 84484; 85025; 85379; 96361; 96374; 99285-25; A9270-GY; J2405; J7030

== ENCOUNTER 2025-06-12 15:38 | Emergency (ER) | payer SELFPAY ==
[2025-06-12 16:20] LABS: BASOPHILS ABSOLUTE AUTO 0.0 x10-3/uL (0.0-0.1); BASOPHILS PERCENT AUTO 0.3 % (0.2-1.5); EOSINOPHILS ABSOLUTE AUTO 0.2 x10-3/uL (0.0-0.8); EOSINOPHILS PERCENT AUTO 2.5 % (0.6-8.1); LYMPHOCYTES ABSOLUTE AUTO 2.2 x10-3/uL (1.0-4.4); LYMPHOCYTES PERCENT AUTO 22.5 % (18.4-52.1); MEAN PLATELET VOLUME 9.4 fL (7.1-12.4); MONOCYTES ABSOLUTE AUTO 0.5 x10-3/uL (0.3-1.0); MONOCYTES PERCENT AUTO 5.5 % (4.4-15.7); NEUTROPHILS ABSOLUTE AUTO 6.8 x10-3/uL (1.5-6.3); NEUTROPHILS PERCENT AUTO 69.2 % (30.8-76.2); PLATELET COUNT,PLT 266 x10(3)uL (151-488); RED BLOOD CELL COUNT 4.61 x10(6)uL (3.60-5.20); RED CELL DISTRIBUTION WIDTH 13.6 % (12.3-16.5); WHITE BLOOD CELL COUNT,WBC 9.8 x10-3/uL (3.0-10.3)
[2025-06-12 16:26] LABS: BASE EXCESS VENOUS,POC 2 mmol/L (-2 - 3+); PCO2 VENOUS,POC 38 mmHg (41-51); PH VENOUS,POC 7.44 pH Units (7.32-7.43)
[2025-06-12 16:34] LABS: A/G RATIO 0.8; ALANINE AMINOTRANSFERASE,ALT 20 U/L (12-36); ASPARTATE AMNIOTRANSFERASE,AST 26 IU/L (5-25); BILIRUBIN TOTAL 0.2 mg/dL (0.1-1.3); BLOOD UREA NITROGEN,BUN 16 mg/dL (7-18); CARBON DIOXIDE,CO2 30 mmol/L (21-32); CHLORIDE,CL 97 mmol/L (100-110); CREATININE 1.1 mg/dL (0.55-1.02); ESTIMATED GFR 60 mL/min (>60); PROTEIN TOTAL,TP 7.4 g/dL (6.0-8.0); SODIUM,NA 134 mmol/L (135-145)
[2025-06-12 16:38] LABS: GLUCOSE RANDOM 564 mg/dL (80-116); POTASSIUM,K 2.8 mmol/L (3.5-5.3)
[2025-06-12] MEDS ORDERED: 50% Dextrose in Water 50 ML Syringe IVPUSH PRN (16:39)
[2025-06-12 16:45] LABS: GLUCOSE,URINE >1000 mg/dL (NORMAL); OCCULT BLOOD,URINE NEGATIVE (NEGATIVE)
[2025-06-12 16:46] LABS: APPEARANCE,URINE CLEAR (CLEAR)
[2025-06-12] MEDS: Insulin Regular, Human 100 Units/ML 10 ML Vial IV ONE (17:05)
[2025-06-12] MEDS: Potassium Chloride 20 MEQ in Premix Bag 1 BAG IV ONE (17:08)
[2025-06-12] MEDS: Potassium Chloride 20 MEQ Tab.ER PO ONE (17:08)
[2025-06-12 18:14] LABS: BLOOD UREA NITROGEN,BUN 15 mg/dL (7-18); CARBON DIOXIDE,CO2 29 mmol/L (21-32); CHLORIDE,CL 104 mmol/L (100-110); CREATININE 0.8 mg/dL (0.55-1.02); EST CRCL DRUG DOSING (CG) 73.18 mL/min; ESTIMATED GFR 88 mL/min (>60); GLUCOSE RANDOM 214 mg/dL (80-116); POTASSIUM,K 2.9 mmol/L (3.5-5.3); SODIUM,NA 140 mmol/L (135-145)
== END 2025-06-12 19:09 | disposition home or self-care (01) ==
LOC: FB.ED 15:38
DX: E11.65 Type 2 diabetes mellitus with hyperglycemia (principal); Z91.148 Patient's other noncompliance with medication regimen for other reason; I10 Essential (primary) hypertension; J44.9 Chronic obstructive pulmonary disease, unspecified; E66.9 Obesity, unspecified; Z68.26 Body mass index [BMI] 26.0-26.9, adult; Z86.16 Personal history of COVID-19; Z90.49 Acquired absence of other specified parts of digestive tract; Z88.8 Allergy status to other drugs, medicaments and biological substances; Z79.84 Long term (current) use of oral hypoglycemic drugs; Z79.899 Other long term (current) drug therapy
CPT/HCPCS: 36415; 71045; 80048; 80053; 81003; 82947; 83690; 85025; 96361; 96365; 96366; 99284; 99285; A9270; J3480; J7030